=== PATIENT | male | born 1965 | race Caucasian/White ===

== ENCOUNTER → 2020-07-21 | Outpatient (CLI) | payer OTHER ==
[2014-07-04 14:04] VITALS: BP 126/72
[~2020-07-21] MED LIST: DEXT30CA6 PO; GABA-586 PO; IOHEXOL 240 MG/ML 50ML VIAL. ONE; IOHEXOL 240 MG/ML 50ML VIAL. PO ONE; IOHEXOL 300 MG/ML 75 ML VIAL. IV ONE; IOHEXOL 350 MG/ML 100 ML VIAL. IV ONE; METH-38 PO
--- NOTE | 2020-07-21 14:10 | RAD ---
CT abdomen and pelvis with contrast History: Left-sided umbilical pain Technique: After the administration of intravenous contrast, CT imaging was performed of the abdomen and pelvis. Oral contrast was also given. Multiplanar images are reviewed. Exposure: One or more of the following individualized dose reduction techniques were utilized for this examination: 1. Automated exposure control 2. Adjustment of the mA and/or kV according to patient size 3. Use of iterative reconstruction technique. Comparison: None Findings: There is no significant abnormality of the visualized lung bases. There is no significant abnormality of the liver, spleen, pancreas, adrenal glands. Both kidneys enhance without hydronephrosis. Gallbladder is present without obvious intraluminal abnormality by CT. Bowel is not dilated. There is no free fluid or free air. There is no significant inflammatory type change about the bowel. Normal caliber appendix is visualized without adjacent inflammatory change. There is appearance of mild circumferential wall thickening of the superior aspect of the ascending colon to hepatic flexure. There is some variable retained stool in the colon. There is mild colonic diverticulosis. There is [id number] L4-5 degenerative disc disease. There is been posterior decompression at L4-5. There is multilevel lumbar facet degenerative change. There is minimal fat in the right inguinal canal, no internal bowel. There are some prostate calcifications. There is small umbilical fascial defect, no internal bowel. Impression: 1. There is no significant inflammatory type change about the bowel. There is variable retained stool in the colon. There is degree of wall prominence of the superior ascending colon to the hepatic flexure, segmental colitis or mass not excluded by this exam. Colon screening is advised if this has not been performed. 2. There is small umbilical fascial defect, no internal bowel. There is minimal fat in the right inguinal canal, no internal bowel. Electronically signed by: Christopher Abraham MD (07/21/2020 2:07 PM) [facility]
== END ==
LOC: CT 08:18
PROVIDERS: ATTEND Family Medicine
DX: K57.30 Diverticulosis of large intestine without perforation or abscess without bleeding (principal); R10.33 Periumbilical pain; M51.36 Other intervertebral disc degeneration, lumbar region; M47.816 Spondylosis without myelopathy or radiculopathy, lumbar region; N42.9 Disorder of prostate, unspecified
CPT/HCPCS: 74177; Q9966; Q9967